=== PATIENT | male | born 1965 | race Caucasian/White ===

== ENCOUNTER 2018-06-30 06:50 | Day surgery (SDC) | payer MEDICARE, OTHER ==
[~2018-06-30 06:50] MED LIST: FENTANYL CITRATE INJ/PF 100 MCG/2 ML AMPUL ONE; KETOROLAC TROMETHAMINE 0.45% 4 DROP/0.4 ML DROPERETTE OS PRN; MIDAZOLAM 2 MG/2 ML INJ ONE
[2018-06-30] MEDS: TETRACAINE HCL 0.5% OPH SOLN 4 ML OS PRN ×4 (07:15→07:51)
[2018-06-30] MEDS: BESIFLOXACIN HCL 0.6% OPH SUSP 5 ML BOTTLE OS PRN ×4 (07:16→08:20)
[2018-06-30] MEDS: TROPICAMIDE 1% OPH SOLN 3 ML OS PRN ×3 (07:16→07:37)
[2018-06-30] MEDS: CYCLOPENTOLATE 0.2%/PHENYLEPHRINE 1% OPH SOLN 2 ML OS PRN ×3 (07:16→07:37)
[2018-06-30] MEDS ORDERED: LIDOCAINE 1% INJ-PF (10 MG/ML) 30 ML SDV ONE (07:21)
[2018-06-30] MEDS: LIDOCAINE 1%/PHENYLEPHRINE 1.5% 1 ML VIAL ONE ×2 (08:05)
[2018-06-30] MEDS: EPINEPHRINE INJ/PF 1 MG/1 ML AMPULE ONE ×2 (08:05)
[2018-06-30] MEDS: CHONDR SU A NA/HYALUR INTRAOC KIT (SURGICARE) ONE ×2 (08:05)
--- NOTE | 2018-07-01 08:27 | [facility] OPERATIVE REPORT E ---
[facility] Operative Report NAME: EFRAÍN SMITH AGE: 52Y DATE OF SURGERY: 06/30/2018 ROOM: PREOPERATIVE DIAGNOSIS: CATARACT, LEFT EYE. POSTOPERATIVE DIAGNOSIS: CATARACT, LEFT EYE. OPERATION: Cataract extraction with Toric IOL of the left eye. SURGEON: SAEED DUGGAN M.D. ANESTHESIA: Topical. PROCEDURE: After obtaining appropriate consent, the patient's left eye was prepped and draped in sterile fashion as well as the surgeon in a sterile manner and cataract surgery was started. First a paracentesis blade was used to make a side-port incision. Viscoelastic was used to inflate the anterior chamber. Next a 2.4 mm incision was made with a 2.4 mm blade, clear corneal temporally. A continuous capsulorrhexis was made using a cystotome and Utrata forceps. Following this hydrodissection was carried out to make the lens fully loose and mobile and it was rotated 90 degrees. Following this, a lnlaji-hrb-ujyiorf technique was used to phacoemulsify the lens with a CDE of 4.43. The remaining cortex was removed with irrigation/aspiration. Provisc was instilled into the capsular bag to inflate the bag. A SN6AT4, 17.0 diopter lens was placed, rotated to 159 degrees. The remaining viscoelastic material was removed with irrigation/aspiration. Following this, the incision was found to be watertight. Besivance was instilled into the eye and a protective shield was placed over the eye. The patient returned to the postoperative recovery in stable condition. DICTATING PHYSICIAN: SAEED DUGGAN M.D. [id number] PHY#: [id number] ID: [id number] JOB#: [id number] ACCT: [id number] cc:SAEED DUGGAN M.D. > MTDD
--- NOTE | 2018-07-01 08:32 | [facility] DISCHARGE SUMMARY E ---
[facility] Discharge Summary NAME: EFRAÍN SMITH AGE: 52Y ADMITTED: 06/30/2018 DISCHARGED: 06/30/2018 FINAL DIAGNOSIS: CATARACT, LEFT EYE. HISTORY/CLINIC COURSE: This is a 52-year-old male who underwent cataract extraction of the left eye with insertion of a Toric IOL of the left eye. He underwent surgery because he was having difficulty driving at night secondary to glare from headlights. Patient is to be on a regular diet. No bending at the waist, no heavy lifting. Patient should use the Besivance, Prolensa, and Durezol at 3 p.m. and 8 p.m., and sleep with a rigid shield. I will see him for 1 day postoperative tomorrow. DICTATING PHYSICIAN: SAEED DUGGAN M.D. [id number] [id number] PHY#: [id number] ID: [id number] JOB#: [id number] ACCT: [id number] cc:SAEED DUGGAN M.D. >
== END 2018-06-30 09:02 | disposition home or self-care (01) ==
LOC: SC 06:50
PROVIDERS: ATTEND Internal Medicine
DX: H25.813 Combined forms of age-related cataract, bilateral (principal); I10 Essential (primary) hypertension; E11.9 Type 2 diabetes mellitus without complications; E07.9 Disorder of thyroid, unspecified; Z79.84 Long term (current) use of oral hypoglycemic drugs; Z79.1 Long term (current) use of non-steroidal anti-inflammatories (NSAID); Z79.899 Other long term (current) drug therapy; Z98.2 Presence of cerebrospinal fluid drainage device; G47.30 Sleep apnea, unspecified
CPT/HCPCS: 66984; 82962; V2787; J2250; J3490 ×2; A9270; J0171; J2370; 142; J3010

== ENCOUNTER 2018-07-23 08:40 | Day surgery (SDC) | payer MEDICARE, OTHER ==
[~2018-07-23 08:40] MED LIST changes: +CHONDR SU A NA/HYALUR INTRAOC KIT (SURGICARE) ONE; +DORZOLAMIDE HCL 2%/TIMOLOL MALEAT 0.5% OPH SOLN 10 ML OD PRN; +EPINEPHRINE INJ/PF 1 MG/1 ML AMPULE ONE; -FENTANYL CITRATE INJ/PF 100 MCG/2 ML AMPUL ONE; +KETOROLAC TROMETHAMINE 0.45% 4 DROP/0.4 ML DROPERETTE OD PRN; -KETOROLAC TROMETHAMINE 0.45% 4 DROP/0.4 ML DROPERETTE OS PRN; +LIDOCAINE 1% INJ-PF (10 MG/ML) 30 ML SDV ONE; +LIDOCAINE 1%/PHENYLEPHRINE 1.5% 1 ML VIAL ONE; -MIDAZOLAM 2 MG/2 ML INJ ONE
[2018-07-23] MEDS ORDERED: MIDAZOLAM 2 MG/2 ML INJ ONE (09:05)
[2018-07-23] MEDS: BESIFLOXACIN HCL 0.6% OPH SUSP 5 ML BOTTLE OD PRN ×4 (09:40→10:44)
[2018-07-23] MEDS: TETRACAINE HCL 0.5% OPH SOLN 4 ML OD PRN ×3 (09:40→10:10)
[2018-07-23] MEDS: CYCLOPENTOLATE 0.2%/PHENYLEPHRINE 1% OPH SOLN 2 ML OD PRN ×3 (09:40→10:00)
[2018-07-23] MEDS: TROPICAMIDE 1% OPH SOLN 3 ML OD PRN ×3 (09:40→10:00)
--- NOTE | 2018-07-23 21:42 | [facility] OPERATIVE REPORT E ---
[facility] Operative Report NAME: EFRAÍN SMITH AGE: 53Y DATE OF SURGERY: 07/23/2018 ROOM: PREOPERATIVE DIAGNOSIS: CATARACT, RIGHT EYE. POSTOPERATIVE DIAGNOSIS: CATARACT, RIGHT EYE. OPERATION: Cataract extraction with Toric IOL of the right eye. SURGEON: SAEED DUGGAN M.D. ANESTHESIA: Topical. PROCEDURE: After obtaining appropriate consent, the patient's right eye was prepped and draped in sterile fashion as well as the surgeon in a sterile manner and cataract surgery was started. First a paracentesis blade was used to make a side-port incision. Viscoelastic was used to inflate the anterior chamber. Next a 2.4 mm incision was made with a 2.4 mm blade, clear corneal temporally. A continuous capsulorrhexis was made using a cystotome and Utrata forceps. Following this hydrodissection was carried out to make the lens fully loose and mobile and it was rotated 90 degrees. Following this, a evfbbi-mvg-swdbuso technique was used to phacoemulsify the lens with a CDE of 5.11. The remaining cortex was removed with irrigation/aspiration. Provisc was instilled into the capsular bag to inflate the bag. A SN6AT6, 17.5 diopter lens rotated to 139 [address] was [address]. The remaining viscoelastic material was removed with irrigation/aspiration. Following this, the incision was found to be watertight. Besivance was instilled into the eye and a protective shield was placed over the eye. The patient returned to the postoperative recovery in stable condition. DICTATING PHYSICIAN: SAEED DUGGAN M.D. [id number] [id number] PHY#: [id number] ID: [id number] JOB#: [id number] ACCT: [id number] cc:SAEED DUGGAN M.D. >
--- NOTE | 2018-07-23 21:48 | [facility] DISCHARGE SUMMARY E ---
[facility] Discharge Summary NAME: EFRAÍN SMITH AGE: 53Y ADMITTED: 07/23/2018 DISCHARGED: FINAL DIAGNOSIS: CATARACT, LEFT EYE. HISTORY/CLINIC COURSE: This is a 52-year-old male who underwent cataract extraction of the right eye with insertion of a Toric IOL. He underwent surgery because he was having an imbalance since having surgery on his left eye. He should be on a regular diet. No bending at the waist, no heavy lifting. He should use his Besivance, Prolensa, and Durezol at 3 p.m. and 8 p.m., and sleep with a rigid shield. I will see him for 1 day postoperative tomorrow. DICTATING PHYSICIAN: SAEED DUGGAN M.D. 1953M [id number] PHY#: [id number] ID: [id number] JOB#: [id number] ACCT: [id number] cc:SAEED DUGGAN M.D. > MTDD
== END 2018-07-23 11:25 | disposition home or self-care (01) ==
LOC: SC 08:40
PROVIDERS: ATTEND Internal Medicine
DX: H25.811 Combined forms of age-related cataract, right eye (principal); Z96.1 Presence of intraocular lens; I10 Essential (primary) hypertension; E11.9 Type 2 diabetes mellitus without complications; E07.9 Disorder of thyroid, unspecified; G47.30 Sleep apnea, unspecified; Z79.4 Long term (current) use of insulin; Z95.810 Presence of automatic (implantable) cardiac defibrillator
CPT/HCPCS: 66984; 82962; V2787; J2250; J3490 ×2; A9270; J0171; J2370; 142